=== PATIENT | male | born 1995 | race Caucasian/White ===

== ENCOUNTER 2020-03-10 11:41 | Emergency (ER) | payer BC ==
[~2020-03-10] VITALS: Ht 175.3 cm; Wt 77.3 kg
[2020-03-10 11:48] VITALS: BP 139/90; TEMP 97.5
[2020-03-10 12:32] LABS: BASO # 0.1 (0.0-0.2); BASO % 0.6 % (0.0-2.0); EOS # 1.3 (0.0-0.7); EOS % 7.3 % (0-4.0); GRAN # 13.3 (1.4-6.5); GRAN % 78.2 % (42.2-75.2); HEMATOCRIT 48.3 % (42.0-52.0); HEMOGLOBIN 16.2 g/dl (13.5-18.0); LYMPH # 1.7 (1.2-3.4); LYMPH % 9.7 % (20.0-51.0); MEAN CELL VOLUME 88 fl (80.0-100.0); MEAN CORPUSCULAR HEMOGLOBIN 30 pg (27.0-31.0); MEAN CORPUSCULAR HGB CONC 34 g/dl (33.0-37.0); MONO # 0.7 (0.1-0.6); MONO % 3.8 % (1.7-9.3); PLATELET COUNT 374 K/mm3 (130-400); RED BLOOD COUNT 5.47 M/mm3 (4.20-5.60); REDCELL DISTRIBUTION WIDTH-CV 12.4 % (11.5-14.5)
[2020-03-10 12:42] LABS: ALANINE AMINOTRANSFERASE 25 U/L (4-49); ALBUMIN 5.3 gm/dL (3.5-5.0); ALKALINE PHOSPHATASE 109 U/L (50-136); ANION GAP 18 mmol/L (7-16); AST,SGOT 34 U/L (15-37); BILIRUBIN,TOTAL 1.5 mg/dL (0.0-1.0); BLOOD UREA NITROGEN 14 mg/dL (9-20); CARBON DIOXIDE 24 mmol/L (22-30); CHLORIDE 100 mmol/L (98-107); CREATININE, serum 1.01 (0.66-1.25); GLUCOSE 106 mg/dL (74-106); POTASSIUM 4.6 mmol/L (3.4-5.0); SODIUM 142 mmol/L (137-145); TOTAL PROTEIN 9.2 gm/dL (6.4-8.2)
[2020-03-10 13:01] LABS: TROPONIN-I < 0.012 ng/mL (0.000-0.035)
[2020-03-10] MEDS ORDERED: SINGULAIR 110 MG/TAB PO (16:29)
[2020-03-10] MEDS ORDERED: MEDROL 4MG DOSPA4 MG PO (16:29)
[2020-03-10] MEDS ORDERED: IPRATROPIUM BROM3 M1 IH (16:29)
[2020-03-10 17:02] VITALS: PULSE 125
== END 2020-03-10 17:02 | disposition home or self-care (01) ==
LOC: COL.ER 11:41
PROVIDERS: Nurse Practitioner Primary Care
DX: J06.9 Acute upper respiratory infection, unspecified (principal); R05 Cough; J45.901 Unspecified asthma with (acute) exacerbation; Z20.828 Contact with and (suspected) exposure to other viral communicable diseases
CPT/HCPCS: J2060; J2920; Q9967